=== PATIENT | male | born 1945 | race Caucasian/White ===

== ENCOUNTER 2022-05-15 15:27 | Outpatient (REF) | payer MEDICARE, SELFPAY ==
--- NOTE | ~2022-05-15 | XR_ITS ---
EXAMINATION: RIGHT HAND AND WRIST X-RAY CLINICAL INFORMATION: Pain COMPARISON: None TECHNIQUE: 3 views of the right hand and wrist FINDINGS: No acute fracture or dislocation. There is widening of the scapholunate distance. There is proximal migration of the distal carpal row. There is volar tilt of the lunate on the lateral view. There are cystic changes in the capitate bone in the wrist. There are degenerative changes with joint space narrowing and sclerosis in the ulnar side of the wrist. There is osteoarthritis at the DIP joints with joint space narrowing and osteophyte formation. Soft tissues are unremarkable. 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
== END 2022-05-15 15:28 | disposition home or self-care (01) ==
LOC: HO.HMGCX 15:27
PROVIDERS: PCP Internal Medicine Endocrinology, Diabetes & Metabolism; Visit Provider Nurse Practitioner Family
DX: M25.531 Pain in right wrist (principal); M79.641 Pain in right hand
CPT/HCPCS: 73110; 73130